=== PATIENT | male | born 1990 | race African-American/Black ===

== ENCOUNTER 2017-06-21 10:26 | Emergency (ER) | payer MEDICAID ==
[~2017-06-21] VITALS: Ht 190.5 cm; Wt 129.3 kg
== END 2017-06-21 12:15 | disposition home or self-care (01) ==
LOC: CED 10:26 → CFTX 10:26
DX: S51.812A Laceration without foreign body of left forearm, initial encounter (principal); Z23 Encounter for immunization; W22.8XXA Striking against or struck by other objects, initial encounter; Y92.009 Unspecified place in unspecified non-institutional (private) residence as the place of occurrence of the external cause
CPT/HCPCS: 12031; 90471; 90715; 99283